=== PATIENT | male | born 1975 | race Caucasian/White ===

== ENCOUNTER 2025-03-22 11:11 | Outpatient (CLI) | payer BC | END 2025-03-22 11:12 | disposition home or self-care (01) | LOC: CSHSLEEP 11:11 | PROVIDERS: ATTEND Family Medicine | DX: G47.33 Obstructive sleep apnea (adult) (pediatric) (principal); R53.83 Other fatigue; R06.83 Snoring; Z86.69 Personal history of other diseases of the nervous system and sense organs | CPT/HCPCS: 95800 ==